=== PATIENT | female | born 1950 | race Caucasian/White ===

== ENCOUNTER 2019-03-29 06:39 | Emergency (ER) | payer OTHER, MEDICAID ==
[~2019-03-29] VITALS: Ht 162.6 cm; Wt 60.8 kg
[~2019-03-29 06:39] MED LIST: ASPI-231 PO; ATEN-60 PO; ATOR10TA PO; DOCU60SY2 PO; ERGO1CAP6 PO; FOLI1TAB51 PO; METH2.5T3 PO
[2019-03-29] MEDS ORDERED: SODIUM CHLORIDE 0.9% 1,000 ML IV ONE (07:10)
[2019-03-29] MEDS ORDERED: METOCLOPRAMIDE HCL 5MG/ml INJ 2ml VIAL IV ONE (07:15)
[2019-03-29 07:17] LABS: Basophils # (auto) 0 uL; Basophils % (auto) 0.6 % (0.0-2.0); Eosinophils # (auto) 0.2 uL; Eosinophils % (auto) 3.5 % (0.0-7.0); Hematocrit 42.4 % (36.0-46.0); Hemoglobin 14.4 g/dL (12.2-16.2); Lymphocytes # (auto) 1.5 uL; Lymphocytes % (auto) 34.8 % (10.0-50.0); Mean Corpuscular Hemoglobin 33.7 pg (28.0-32.0); Monocytes # (auto) 0.4 uL; Neutrophils # (auto) 2.2 uL; Neutrophils % (auto) 51.1 % (37.0-80.0); Nucleated Red Blood Cells % 0.1 %; Platelet Count (auto) 258 10^3/uL (140-450); Red Blood Cells 4.28 10^6/uL (4.0-5.20); Red Cell Distribution Width 13.8 % (11.8-14.3); White Blood Cell 4.3 10^3/uL (4.4-10.8)
[2019-03-29 08:15] LABS: Urine Bacteria NONE SEEN /hpf (None Seen); Urine Blood Negative /uL (Negative); Urine Specific Gravity 1.008 (1.001-1.035); Urine WBC <1 /hpf (0 - 5)
[2019-03-29 08:49] LABS: Albumin 4.2 g/dL (3.4-5.0); Calcium 9.4 mg/dL (8.5-10.1); Potassium 3.8 mmol/L (3.5-5.1)
[2019-03-29 08:53] LABS: Bilirubin, Total 0.9 mg/dL (0.2-1.0); Total Protein 7.4 g/dL (6.4-8.2)
[2019-03-29 08:57] VITALS: BP 128/89
== END 2019-03-29 11:01 | disposition home or self-care (01) ==
LOC: EDBD 06:39 → ER 06:51
DX: R10.32 Left lower quadrant pain (principal); R10.31 Right lower quadrant pain; E11.9 Type 2 diabetes mellitus without complications; M06.9 Rheumatoid arthritis, unspecified; I10 Essential (primary) hypertension; E78.5 Hyperlipidemia, unspecified; R19.7 Diarrhea, unspecified; Z90.49 Acquired absence of other specified parts of digestive tract; Z90.710 Acquired absence of both cervix and uterus; Z88.2 Allergy status to sulfonamides; Z79.899 Other long term (current) drug therapy
CPT/HCPCS: 36415; 74176; 80053; 81001; 83690; 83735; 85025; 93005; 96361; 96374; 99284; J2765; J7030

== ENCOUNTER 2022-12-25 07:47 | Emergency (ER) | payer OTHER, MEDICAID ==
[~2022-12-25] VITALS: Ht 167.6 cm; Wt 68.2 kg
[~2022-12-25 07:47] MED LIST changes: -ASPI-231 PO; +ASPI1TAB20 PO; +METH2.5T PO; -METH2.5T3 PO
[2022-12-25] MEDS ORDERED: DONNATAL 5ml ORAL Elix (BELLADONNA ALK-PHENOBARB) PO ONE (08:30)
[2022-12-25] MEDS ORDERED: LIDOCAINE VISCOUS 2% 15ML UD PO ONE (08:30)
[2022-12-25] MEDS ORDERED: MAALOX PLUS or MAALOX 30 ML PO ONE (08:30)
[2022-12-25 09:18] LABS: Basophils # (auto) 0 10 ^3/uL (0-0.2); Basophils % (auto) 0.4 % (0.0-2.0); Eosinophils # (auto) 0.1 10 ^3/uL (0-0.8); Hematocrit 41.2 % (36.0-46.0); Hemoglobin 14.1 g/dL (12.2-16.2); Lymphocytes # (auto) 0.9 10 ^3/uL (0.4-5.4); Lymphocytes % (auto) 24.2 % (10.0-50.0); Mean Corpuscular Hemoglobin 33.7 pg (28.0-32.0); Mean Corpuscular Hgb Conc. 34.2 g/dL (32.0-36.0); Mean Corpuscular Volume 98.6 fL (80.0-100.0); Monocytes # (auto) 0.4 10 ^3/uL (0-1.3); Neutrophils # (auto) 2.3 10 ^3/uL (1.6-8.6); Neutrophils % (auto) 62.4 % (37.0-80.0); Nucleated Red Blood Cells % 0.1 %; Red Blood Cells 4.17 10^6/uL (4.0-5.20); Red Cell Distribution Width 13.1 % (11.8-14.3); White Blood Cell 3.6 10^3/uL (4.4-10.8)
[2022-12-25 09:50] LABS: Calcium 9.2 mg/dL (8.5-10.1); Potassium 4.9 mmol/L (3.5-5.1)
[2022-12-25 09:53] LABS: BUN/Creatinine Ratio 8.9; Bilirubin, Total 1.6 mg/dL (0.2-1.0); Total Protein 7.3 g/dL (6.4-8.2)
[2022-12-25] MEDS ORDERED: LEVO-28 PO (11:18)
[2022-12-25] MEDS ORDERED: PANT40TA2 PO (11:18)
[2022-12-25 11:40] VITALS: BP 136/52
[2022-12-25] MEDS ORDERED: TRAM50TA2 PO (13:08)
[2022-12-25] MEDS ORDERED: IBU600T PO (13:10)
== END 2022-12-25 11:53 | disposition home or self-care (01) ==
LOC: EDBD 07:47 → ER 07:47
DX: R10.84 Generalized abdominal pain (principal); J18.9 Pneumonia, unspecified organism; R19.7 Diarrhea, unspecified; R51.9 Headache, unspecified; I10 Essential (primary) hypertension; E11.9 Type 2 diabetes mellitus without complications; E78.5 Hyperlipidemia, unspecified; Z90.49 Acquired absence of other specified parts of digestive tract; Z90.710 Acquired absence of both cervix and uterus; Z79.82 Long term (current) use of aspirin; Z79.2 Long term (current) use of antibiotics; Z79.899 Other long term (current) drug therapy; Z88.2 Allergy status to sulfonamides
CPT/HCPCS: 36415; 74176; 80053; 83690; 85025; 93005

== ENCOUNTER 2023-01-07 08:12 | Day surgery (SDC) | payer OTHER, MEDICAID ==
[2023-01-04 15:13] LABS: Basophils # (auto) 0 10 ^3/uL (0-0.2); Basophils % (auto) 0.5 % (0.0-2.0); Eosinophils # (auto) 0.1 10 ^3/uL (0-0.8); Eosinophils % (auto) 2.6 % (0.0-7.0); Hematocrit 39.2 % (36.0-46.0); Hemoglobin 13.4 g/dL (12.2-16.2); Lymphocytes # (auto) 0.8 10 ^3/uL (0.4-5.4); Lymphocytes % (auto) 17.4 % (10.0-50.0); Mean Corpuscular Hemoglobin 33.4 pg (28.0-32.0); Mean Corpuscular Hgb Conc. 34.3 g/dL (32.0-36.0); Mean Corpuscular Volume 97.4 fL (80.0-100.0); Monocytes # (auto) 0.4 10 ^3/uL (0-1.3); Monocytes % (auto) 9.8 % (0.0-12.0); Neutrophils % (auto) 69.7 % (37.0-80.0); Nucleated Red Blood Cells % 0.1 %; Red Blood Cells 4.03 10^6/uL (4.0-5.20); Red Cell Distribution Width 13.4 % (11.8-14.3); White Blood Cell 4.4 10^3/uL (4.4-10.8)
[2023-01-04 15:31] LABS: INR 0.97 (0.9-1.15); Partial Thromboplastin Time 25.4 sec (24.6-33.4)
[2023-01-04 15:44] LABS: Albumin 3.9 g/dL (3.4-5.0); Calcium 9.4 mg/dL (8.5-10.1); Potassium 3.8 mmol/L (3.5-5.1)
[2023-01-04 15:47] LABS: BUN/Creatinine Ratio 10.3 (10.0-20.0); Total Protein 7.2 g/dL (6.4-8.2)
[2023-01-04 16:01] LABS: Urine Bacteria NONE SEEN /hpf (None Seen); Urine Blood 1+ /uL (Negative); Urine Specific Gravity 1.008 (1.001-1.035); Urine WBC 1 /hpf (0 - 5)
[~2023-01-07] VITALS: Ht 162.6 cm; Wt 58.1 kg
[~2023-01-07 08:12] MED LIST changes: -ATEN-60 PO; -FOLI1TAB51 PO; +IBU600T PO
[2023-01-07] MEDS ORDERED: PROPOFOL 10 MG/ML 20 ML IV ONE (10:35)
[2023-01-07] MEDS ORDERED: LIDOCAINE 2% (LOCAL ANESTH.) PF 5ml SDV ONE (10:35)
[2023-01-07 11:11] VITALS: BP 141/62
== END 2023-01-07 11:16 | disposition home or self-care (01) ==
LOC: GI 08:12
PROVIDERS: ATTEND Internal Medicine Gastroenterology
DX: R12 Heartburn (principal); K29.90 Gastroduodenitis, unspecified, without bleeding; K44.9 Diaphragmatic hernia without obstruction or gangrene; K59.00 Constipation, unspecified; E78.5 Hyperlipidemia, unspecified; M19.90 Unspecified osteoarthritis, unspecified site; F41.9 Anxiety disorder, unspecified; I10 Essential (primary) hypertension; K21.9 Gastro-esophageal reflux disease without esophagitis; Z88.2 Allergy status to sulfonamides; Z79.82 Long term (current) use of aspirin; Z79.1 Long term (current) use of non-steroidal anti-inflammatories (NSAID); F15.90 Other stimulant use, unspecified, uncomplicated; J18.9 Pneumonia, unspecified organism; J40 Bronchitis, not specified as acute or chronic; Z80.1 Family history of malignant neoplasm of trachea, bronchus and lung; Z82.49 Family history of ischemic heart disease and other diseases of the circulatory system; Z90.710 Acquired absence of both cervix and uterus; Z90.49 Acquired absence of other specified parts of digestive tract; Z79.899 Other long term (current) drug therapy; Z98.890 Other specified postprocedural states; Z20.822 Contact with and (suspected) exposure to COVID-19
CPT/HCPCS: 36415; 43239; 80053; 81001; 85025; 85610; 85730; 88305; 88342; J2001; J2704; J7030; U0003

== ENCOUNTER 2023-04-18 17:25 | Emergency (ER) | payer OTHER, MEDICAID ==
[~2023-04-18] VITALS: Ht 162.6 cm; Wt 59.0 kg
[2023-04-18 17:52] LABS: Basophils # (auto) 0 10 ^3/uL (0-0.2); Basophils % (auto) 0.7 % (0.0-2.0); Eosinophils # (auto) 0.2 10 ^3/uL (0-0.8); Eosinophils % (auto) 5.1 % (0.0-7.0); Hematocrit 38.5 % (36.0-46.0); Hemoglobin 13.3 g/dL (12.2-16.2); Lymphocytes % (auto) 23.3 % (10.0-50.0); Mean Corpuscular Hemoglobin 33.2 pg (28.0-32.0); Mean Corpuscular Hgb Conc. 34.6 g/dL (32.0-36.0); Monocytes # (auto) 0.6 10 ^3/uL (0-1.3); Monocytes % (auto) 14.8 % (0.0-12.0); Neutrophils # (auto) 2.4 10 ^3/uL (1.6-8.6); Neutrophils % (auto) 56.1 % (37.0-80.0); Nucleated Red Blood Cells % 0.1 %; Red Blood Cells 4.01 10^6/uL (4.0-5.20); White Blood Cell 4.3 10^3/uL (4.4-10.8)
[2023-04-18 18:52] LABS: Albumin 3.6 g/dL (3.4-5.0); Calcium 9.3 mg/dL (8.5-10.1)
[2023-04-18 18:56] LABS: BUN/Creatinine Ratio 9.6 (10.0-20.0); Bilirubin, Total 0.7 mg/dL (0.2-1.0)
[2023-04-18 21:47] VITALS: BP 129/59
== END 2023-04-19 00:41 | disposition home or self-care (01) ==
LOC: EDUNIT# 17:25 → EDBD 17:25 → ER 17:25
DX: R00.2 Palpitations (principal); I49.3 Ventricular premature depolarization; D72.819 Decreased white blood cell count, unspecified; E11.65 Type 2 diabetes mellitus with hyperglycemia; I11.0 Hypertensive heart disease with heart failure; I50.9 Heart failure, unspecified; E78.5 Hyperlipidemia, unspecified; Z90.49 Acquired absence of other specified parts of digestive tract; Z90.710 Acquired absence of both cervix and uterus; Z88.2 Allergy status to sulfonamides
CPT/HCPCS: 36415; 71045; 80053; 83735; 83880; 84484; 85025; 93005